=== PATIENT | female | born 1955 | race Caucasian/White ===

== ENCOUNTER 2024-11-27 10:04 | Outpatient (CLI) | payer MEDICARE, BC ==
[2024-11-26 13:14] LABS: ALBUMIN 3.9 G/DL (3.4-5.0); ANION GAP 10 (8-16); BLOOD UREA NITROGEN 20 MG/DL (7-18); CALCIUM 9.4 MG/DL (8.5-10.1); CHLORIDE 104 MMOL/L (99-107); CREATININE 0.77 MG/DL (0.40-0.90); GLUCOSE 110 MG/DL (70-104); SODIUM 139 MMOL/L (135-145); TOTAL CARBON DIOXIDE 25.1 MMOL/L (24-32); eGFR 74 ML/MIN
[2024-11-26 13:18] LABS: POTASSIUM 4.1 MMOL/L (3.5-5.1)
[~2024-11-27 10:04] MED LIST: iohexol 350MG/ML 100ml bottle IV ONE
[2024-11-27] MEDS ORDERED: iohexol 350MG/ML 100ml bottle IV ONE (10:13)
[2024-11-30] MEDS ORDERED: AMLO-379 PO (13:08)
[2024-11-30] MEDS ORDERED: ROSU5TAB51 PO (13:08)
[2024-11-30] MEDS ORDERED: CIME800T PO (13:18)
[2024-11-30] MEDS ORDERED: LORA10CA PO (13:19)
[2024-11-30] MEDS ORDERED: APIX5TAB5 PO (13:21)
[2024-11-30] MEDS ORDERED: COD1CAPS16 (13:25)
[2024-11-30] MEDS ORDERED: CHOL20004 PO (13:26)
== END 2024-11-27 23:59 | disposition home or self-care (01) ==
LOC: RAD 10:04
PROVIDERS: ATTEND Internal Medicine Interventional Cardiology
DX: I65.21 Occlusion and stenosis of right carotid artery (principal)
CPT/HCPCS: 36415; 70498; 80048; Q9967

== ENCOUNTER → 2025-01-08 | Outpatient (CLI) | payer MEDICARE, BC ==
[~2025-01-08] MED LIST changes: +AMLO-379 PO; +APIX5TAB5 PO; +CHOL20004 PO; +CIME800T PO; +COD1CAPS16; +LORA10CA PO; -iohexol 350MG/ML 100ml bottle IV ONE
--- NOTE | 2025-01-08 15:57 | RADIOLOGY REPORT ---
EXAM: DI TIB/FIB 2 VWS CLINICAL INDICATION: TIBIA FRACTURE TECHNIQUE: DI TIB/FIB 2 VWS Comparison: DI TIB/FIB 2 VWS on DOS: 11/30/24 FINDINGS/IMPRESSION: Intramedullary jonas in the left tibia. Nondisplaced distal fibular fracture.
== END | disposition home or self-care (01) ==
LOC: RAD 13:35
PROVIDERS: ATTEND Orthopaedic Surgery
DX: S82.832A Other fracture of upper and lower end of left fibula, initial encounter for closed fracture (principal); X58.XXXA Exposure to other specified factors, initial encounter; Y93.89 Activity, other specified; Y92.89 Other specified places as the place of occurrence of the external cause; Y99.8 Other external cause status
CPT/HCPCS: 73590

== ENCOUNTER 2025-02-23 10:14 | Outpatient (CLI) | payer MEDICARE, BC ==
--- NOTE | 2025-02-23 11:49 | RADIOLOGY REPORT ---
EXAM: DI TIB/FIB 2 VWS CLINICAL INDICATION: S/P FRACTURE TECHNIQUE: DI TIB/FIB 2 VWS Comparison: DI TIB/FIB 2 VWS on DOS: 01/08/25, DI TIB/FIB 2 VWS on DOS: 12/01/24, DI TIB/FIB 2 VWS on D OS: 11/30/24 FINDINGS/IMPRESSION: There is no evidence of acute fracture or dislocation. Intramedullary jonas transfixing chronic distal to mid left tibial shaft fracture. Healing distal fibu lar shaft fracture.
== END 2025-02-23 23:59 | disposition home or self-care (01) ==
LOC: RAD 10:14
PROVIDERS: ATTEND Orthopaedic Surgery
DX: S82.202A Unspecified fracture of shaft of left tibia, initial encounter for closed fracture (principal); S82.832A Other fracture of upper and lower end of left fibula, initial encounter for closed fracture; X58.XXXA Exposure to other specified factors, initial encounter; Y93.89 Activity, other specified; Y92.89 Other specified places as the place of occurrence of the external cause; Y99.8 Other external cause status
CPT/HCPCS: 73590

== ENCOUNTER 2025-05-21 10:05 | Outpatient (CLI) | payer MEDICARE, BC ==
--- NOTE | 2025-05-21 11:41 | RADIOLOGY REPORT ---
PROCEDURE: Left tibia/ fibula radiographs. INDICATION: Displaced bicondylar fracture of the left tibia TECHNIQUE: 2 views of the left tibia/ fibula were obtained. COMPARISON: 02/23/2025. FINDINGS: There is open reduction internal fixation of a tibial fracture with bridging callus formation indicating healing. Hardware is intact. There is a healing distal fibular fracture. No significant change in alignment. No evidence of new fracture. There is a heel spur. Degenerative changes are present in the knee and ankle. IMPRESSION: 1. Healing distal tibial and fibular fractures with intact hardware.
== END 2025-05-21 23:59 | disposition home or self-care (01) ==
LOC: RAD 10:05
PROVIDERS: ATTEND Orthopaedic Surgery
DX: S82.832D Other fracture of upper and lower end of left fibula, subsequent encounter for closed fracture with routine healing (principal); S82.302D Unspecified fracture of lower end of left tibia, subsequent encounter for closed fracture with routine healing; S82.142A Displaced bicondylar fracture of left tibia, initial encounter for closed fracture; S82.301D Unspecified fracture of lower end of right tibia, subsequent encounter for closed fracture with routine healing; X58.XXXD Exposure to other specified factors, subsequent encounter; Z98.890 Other specified postprocedural states
CPT/HCPCS: 73590